=== PATIENT | female | born 1970 | race Caucasian/White ===

== ENCOUNTER 2016-12-31 10:46 | Emergency (ER) | payer BC ==
[2016-12-31] MEDS ORDERED: NS 1,000 ML IV ONE (12:04)
[2016-12-31 12:08] LABS: % IMMATURE GRANULYOCYTES 1.6 % (0.0-1.1); ABSOLUTE IMMATURE GRANULOCYTES 0.24 10^3/uL (0.00-0.10); ADD DIFF? NO; ADD MORPH? NO; ADD SCAN? YES; ATYPICAL LYMPHOCYTE FLAG 0 (0-99); FRAGMENT RBC FLAG 0 (0-99); HEMATOCRIT 34.2 % (38.0-47.0); HEMOGLOBIN 11.7 g/dL (12.6-16.3); LIPEMIA HEMOLYSIS FLAG 90 (0-99); MEAN CELL HEMOGLOBIN 31.7 pg (27.9-34.1); MEAN CELL HEMOGLOBIN CONCENTR. 34.2 g/dL (32.4-36.7); MEAN CELL VOLUME 92.7 fL (81.5-99.8); PLATELET CLUMPS FLAG 0 (0-99); PLATELET COUNT 284 10^3/uL (150-400); RED BLOOD CELL COUNT 3.69 10^6/uL (4.18-5.33); RED CELL DISTRIBUTION WIDTH 13.1 % (11.5-15.2)
[2016-12-31 12:14] LABS: LEFT SHIFT FLG 100 (0-99)
[2016-12-31 12:23] LABS: ANION GAP 9 mEq/L (8-16); CALCIUM 8.7 mg/dL (8.5-10.4); CARBON DIOXIDE 24 mEq/l (22-31); CHLORIDE 99 mEq/L (97-110); CREATININE 0.8 mg/dL (0.6-1.0); GLOMERULAR FILTRATION RATE > 60; GLUCOSE 97 mg/dL (70-100); POTASSIUM 4.6 mEq/L (3.5-5.2); SODIUM 132 mEq/L (134-144)
[2016-12-31 12:29] LABS: MONO TEST NEGATIVE (NEGATIVE)
[2016-12-31 12:31] LABS: BHCG-QUALITATIVE NEGATIVE
[2016-12-31 12:49] LABS: SCAN POSITIVE
[2016-12-31 12:52] LABS: PLATELET ESTIMATE ADEQUATE (ADEQ)
[2016-12-31] MEDS ORDERED: ACETAMINOPHEN 500 MG TAB PO ONE (12:59)
--- NOTE | 2016-12-31 13:03 | EDPHY ---
H & P Stated Complaint: GENERAL ACHES, LETHARGY, FEVER - Personal History LMP (Females 10-55): Hysterectomy Current Tetanus/Diphtheria Vaccine: No - Medical/Surgical History Other PMH: HERNIATED DISK, Time Seen by Provider: 12/31/16 11:30 HPI/ROS: Chief complaint: Fever History of present illness: 46-year-old female presents to the emergency department for fever. Patient reports he has had fever for the last 5 days. It has been intermittent in nature. She reports associated body aches, slight cough, mild headache and increasing fatigue. She did see her primary care doctor early on and was started on Tamiflu for presumptive influenza. She is currently taking this as prescribed but symptoms continued to worsen. She did see her primary care doctor today who center here for further evaluation and care. She denies precipitating factors. She denies alleviating factors. She denies sick contacts. Review of systems: A 10 point review of systems was obtained and other than described above was negative (Anthony Gómez) - Physical Exam Exam: General Appearance: Alert, nontoxic. Eyes: Pupils equal and round no pallor or injection. ENT, Mouth: Tympanic membranes, external auditory canals, external ears and surrounding soft tissue including over the mastoids are unremarkable. Nasopharynx is not injected. There is no rhinorrhea. Oropharynx is mildly injected. There is no edema. There is no exudate. There is no asymmetry. The uvula is midline. No elevation of the tongue. There is no hoarseness, no drooling, no trismus, no stridor. Respiratory: There are no retractions, lungs are clear to auscultation. Cardiovascular: Regular rate and rhythm. Gastrointestinal: Abdomen is soft and nontender, no masses, bowel sounds normal. Neurological: Alert and oriented x4. Strength and sensation intact and symmetrical. No meningismus. Skin: Warm and dry, no rashes. Musculoskeletal: Neck is supple nontender. Extremities are symmetrical, full range of motion. Psychiatric: Patient is oriented X 3, there is no agitation. (Anthony Gómez) Constitutional: Initial Vital Signs Temperature (C) 36.9 C 12/31/16 10:53 Heart Rate 92 12/31/16 10:53 Respiratory Rate 18 12/31/16 10:53 Blood Pressure 100/62 12/31/16 10:53 O2 Sat (%) 99 12/31/16 10:53 O2 Delivery Mode Room Air Allergies/Adverse Reactions: No Known Allergies Allergy (Unverified 12/31/16 10:50) Home Medications: Medication Instructions Recorded Citalopram 12/31/16 Flexeril 12/31/16 Gabapentin 12/31/16 Naproxen 12/31/16 Tamiflu 12/31/16 Xanax 12/31/16 Departure - Departure Disposition: Home, Routine, Self-Care Clinical Impression: Urinary tract infection Condition: Good Instructions: Viral Syndrome (ED) Additional Instructions: Follow-up with your primary care doctor for continued evaluation and care Finish Tamiflu as prescribed If symptoms worsen or new symptoms develop return to the emergency room for recheck Referrals: Kellie Munoz [Primary Care Provider] - As per Instructions
[2016-12-31 13:18] LABS: COLOR YELLOW; LEUKOCYTE ESTERASE,URINE 3+ (NEGATIVE); NITRITE,URINE NEGATIVE (NEGATIVE)
[2016-12-31 13:25] LABS: BACTERIA 4+ /hpf (NONE SEEN); WBC,URINE 50-182 /hpf (0-3)
[2016-12-31] MEDS ORDERED: KETOROLAC 30 MG/1 ML SDV IVP ONE (13:48)
[2016-12-31 14:51] VITALS: BP 112/75; PULSE 85; RESP 16; TEMP 98.1; O2SAT 98
== END 2016-12-31 15:04 | disposition home or self-care (01) ==
DX: N39.0 Urinary tract infection, site not specified (principal); B96.89 Other specified bacterial agents as the cause of diseases classified elsewhere
CPT/HCPCS: 96365; J0696; J1885

== ENCOUNTER 2017-01-01 23:14 | Inpatient (IN) | payer BC ==
[2017-01-01] MEDS ORDERED: NS 1,000 ML IV ONE (23:56)
--- NOTE | 2017-01-02 00:27 | EDPHY ---
H & P Time Seen by Provider: 01/01/17 23:32 HPI/ROS: CHIEF COMPLAINT: Abdominal pain HISTORY OF PRESENT ILLNESS: 46-year-old female presents to the emergency department by private vehicle complaining of abdominal pain and distension. Patient was seen in the emergency department yesterday and was diagnosed with urinary tract infection and likely viral syndrome. She was given IV ceftriaxone and started on oral Keflex. She has been taking this as prescribed since yesterday. She saw her primary care provider earlier in the week and was diagnosed with likely influenza and was started on Tamiflu. Patient now presents to the emergency department with abdominal pain and distension. No vomiting. Subjective fevers. No chest pain or difficulty breathing. No urinary symptoms. REVIEW OF SYSTEMS: Constitutional: No fever, no chills. Eyes: No double or blurry vision. ENT: No sore throat. Respiratory: No cough, no shortness of breath. Cardiac: No chest pain. Gastrointestinal: Abdominal pain as above. No vomiting or diarrhea Genitourinary: No dysuria. Musculoskeletal: No neck or back pain. Skin: No rashes. Neurological: No headache. Past Medical/Surgical History: Hysterectomy, bladder surgery, herniated disc cervical spine Social History: Smoking Status: Never smoked Physical Exam: General Appearance: Alert, no distress. Temperature 36.4 Eyes: Pupils equal and round. Extraocular motions are all intact. ENT: Mouth: Mucous membranes moist. Respiratory: No wheezing, rhonchi, or rales, lungs are clear to auscultation. Cardiovascular: Regular rate and rhythm. Gastrointestinal: Abdomen is soft. She has diffuse tenderness with palpation. Positive rebound tenderness. No guarding. Positive CVA tenderness bilaterally. Neurological: Alert and oriented x 3, cranial nerves II through XII grossly intact Skin: Warm and dry, no rashes. Musculoskeletal: Nontender to palpate along the cervical, thoracic or lumbar spine. Neck is supple. Extremities: Full range of motion and no peripheral edema. Psychiatric: Patient is oriented X 3, there is no agitation. Constitutional: Initial Vital Signs Temperature (C) 36.4 C 01/01/17 23:16 Heart Rate 83 01/01/17 23:16 Respiratory Rate 18 01/01/17 23:16 Blood Pressure 116/69 01/01/17 23:16 O2 Sat (%) 99 01/01/17 23:16 O2 Delivery Mode Room Air Allergies/Adverse Reactions: No Known Allergies Allergy (Unverified 12/31/16 10:50) Home Medications: Medication Instructions Recorded Cephalexin [Keflex] 500 mg PO Q6H #28 cap 12/31/16 ALPRAZolam [Xanax 0.5 MG (*)] 0.25 - 0.5 mg PO DAILY PRN 01/02/17 Ascorbic Acid [Vitamin C 500 mg 500 mg PO BID 01/02/17 (*)] Cholecalciferol Vit D3 [Vitamin D3 500 units PO BID 01/02/17 (*)] Cyclobenzaprine [Flexeril 10 MG 10 mg PO BID 01/02/17 (*)] Escitalopram Oxalate [Lexapro] 20 mg PO DAILY 01/02/17 Gabapentin [Neurontin 300 MG (*)] 300 mg PO TID 01/02/17 Herbals/Supplements -Info Only 1 ea PO DAILY 01/02/17 Naproxen [Naprosyn] 500 mg PO BID 01/02/17 [place]-3 Fatty Acids [Fish Oil 1000 1,000 mg PO DAILY 01/02/17 mg (*)] Oseltamivir Phosphate [Tamiflu 75 75 mg PO BID 01/02/17 mg (*)] Medical Decision Making - Diagnostics Imaging Results: Imaging Impressions Chest X-Ray 01/02/17 01:22 Impression: Small bilateral pleural effusions have developed. Imaging: Discussed imaging studies w/ roster clerk Radiologist ED Course/Re-evaluation: 46-year-old female presents to the emergency department with diffuse abdominal pain and distension. Laboratory studies were drawn the patient has a white blood cell count of over 17,000. She has normal kidney function. Her LFTs are elevated as they were yesterday although a bit improved today however. Her lipase is normal. On examination the patient has abdominal pain with positive peritoneal signs. Patient was also seen examined by Dr. Todd Guardado. CT imaging of the abdomen and pelvis with IV contrast was ordered which revealed diffuse edema to the bowel. No evidence of acute appendicitis. There is some free fluid in the pelvis although small. She also has bilateral small pleural effusions. I spoke with the on-call surgeon, Dr. Dylan Torres, who came to evaluate the patient and recommended this patient be admitted to Medicine and he would consult. Patient was given 1 g of ceftriaxone IV in the emergency department. Blood cultures are pending. Patient was also seen examined by Dr. Todd Guardado, secondary supervising physician. Differential Diagnosis: Including but not limited to acute appendicitis, urinary tract infection, pyelonephritis, cholecystitis, cholelithiasis, pancreatitis, hepatitis, bowel obstruction - Data Points Laboratory Results: Laboratory Results 01/02/17 00:15 01/02/17 00:15 Medications Given: Discontinued Medications Sodium Chloride (Ns) 1,000 mls @ 0 mls/hr IV ONCE ONE PRN Reason: Wide Open Stop: 01/01/17 23:57 Last Admin: 01/02/17 00:20 Dose: 1,000 mls Ceftriaxone Sodium/Dextrose (Rocephin 1 Gm (Premix)) 50 mls @ 100 mls/hr IV EDNOW ONE PRN Reason: Protocol Stop: 01/02/17 02:01 Last Admin: 01/02/17 01:59 Dose: 50 mls Departure - Departure Disposition: [facility] Inpatient Acute Clinical Impression: Acute pyelonephritis Abdominal pain Qualifiers: Abdominal location: generalized Qualified Code(s): R10.84 - Generalized abdominal pain Condition: Good
[2017-01-02 00:32] LABS: ADD DIFF? YES; ADD MORPH? NO; ATYPICAL LYMPHOCYTE FLAG 0 (0-99); FRAGMENT RBC FLAG 0 (0-99); HEMATOCRIT 31.8 % (38.0-47.0); HEMOGLOBIN 10.8 g/dL (12.6-16.3); LIPEMIA HEMOLYSIS FLAG 90 (0-99); MEAN CELL HEMOGLOBIN 31.6 pg (27.9-34.1); MEAN PLATELET VOLUME 10.3 fL (8.7-11.7); PLATELET CLUMPS FLAG 10 (0-99); PLATELET COUNT 352 10^3/uL (150-400); RED BLOOD CELL COUNT 3.42 10^6/uL (4.18-5.33); RED CELL DISTRIBUTION WIDTH 13.5 % (11.5-15.2)
[2017-01-02] MEDS ORDERED: IOPAMIDOL (ISOVUE-300) 100 ML BTL ONE (00:32)
[2017-01-02 00:38] LABS: ADD SCAN? NO; LEFT SHIFT FLG 100 (0-99)
[2017-01-02 01:00] LABS: ANION GAP 8 mEq/L (8-16); CALCIUM 8.5 mg/dL (8.5-10.4); CARBON DIOXIDE 24 mEq/l (22-31); CHLORIDE 105 mEq/L (97-110); CREATININE 0.8 mg/dL (0.6-1.0); GLOMERULAR FILTRATION RATE > 60; GLUCOSE 127 mg/dL (70-100); POTASSIUM 4.2 mEq/L (3.5-5.2); SODIUM 137 mEq/L (134-144)
[2017-01-02 01:10] LABS: PLATELET ESTIMATE ADEQUATE (ADEQ)
[2017-01-02 01:38] LABS: ALANINE AMINOTRANSFERASE 58 IU/L (9-52); ALBUMIN 2.9 g/dL (3.5-5.0); ALKALINE PHOSPHATASE 277 IU/L (38-126); ASPARTATE AMINOTRANSFERASE 39 IU/L (14-46); B-HYDROXYBUTYRATE 0.06 mmol/L (0.02-0.27); BILIRUBIN,TOTAL 1.3 mg/dL (0.1-1.4); BILIRUBIN-CONJUGATED 0.9 mg/dL (0.0-0.5); BILIRUBIN-UNCONJUGATED 0.4 mg/dL (0.0-1.1); TOTAL PROTEIN 6.1 g/dL (6.3-8.2)
[2017-01-02 01:49] LABS: TROPONIN I < 0.012 ng/mL (0-0.034)
[2017-01-02 01:57] LABS: COLOR YELLOW; NITRITE,URINE NEGATIVE (NEGATIVE)
[2017-01-02 02:03] LABS: LEUKOCYTE ESTERASE,URINE 2+ (NEGATIVE)
[2017-01-02 02:10] LABS: BACTERIA 3+ /hpf (NONE SEEN); WBC,URINE 15-25 /hpf (0-3)
[2017-01-02] MEDS ORDERED: ACETAMINOPHEN 325 MG TAB PO PRN (03:15)
[2017-01-02] MEDS ORDERED: ONDANSETRON 4 MG/2 ML VIAL IVP PRN (03:15)
[2017-01-02] MEDS ORDERED: ONDANSETRON DISINTEGRATING 4 MG TAB PO PRN (03:15)
[2017-01-02] MEDS: HYDROmorphONE/DILAUDID 1 MG/ML SYR IVP PRN ×2 (03:43→08:16)
--- NOTE | 2017-01-02 03:46 | PDGENHP ---
History and Physical - Chief Complaint abdominal pain - History of Present Illness Patient is a 46 year old female with no significant pmh who presents to the ED with continued abdominal pain. Patient states her symptoms started about 6 days ago with generalized fatigue, malaise and myalgias. By the following day, her symptoms were associated with intermittent low-grade fevers, so she went to her PMD office for evaluation. Her PMD felt her symptoms appeared consistent with the flu and patient was prescribed Tamiflu on 12/28. Her symptoms and fevers persisted despite Tamiflu initiation, with patient now experiencing more abdominal pain and bloating. She can then came to the ED on 12/31 for further evaluation, was determined to have a UTI and was given a prescription for Keflex. Patient's fevers. After initiating antibiotics, but she continued to have worsening abdominal pain and distention. She has again presented to the ED tonight, now with severe abdominal pain, moderately severe generalized fatigue with dizziness and also pleuritic/positional chest discomfort and palpitations. She denies any nausea, vomiting, diarrhea, headache, cough, shortness of breath. On arrival to the ED, patient was afebrile and hemodynamically stable. Labs revealed persistent leukocytosis, elevated alk phos, and significantly low serum albumin/protein. CT abd/pelvis was then obtained and revealed diffuse edema/anasarca; edema of bowel wall, b/l pleural effusions and trace pericardial effusion. There was also evidence of pyelonephritis, no stones or acute colitis. General surgery was consulted for her diffuse abdominal pain, indicated etiology of pain is likely nonsurgical. She was given IV ceftriaxone for continued treatment of her pyelonephritis/UTI and admitted for further management. History Information - Allergies/Home Medication List Allergies/Adverse Reactions: No Known Allergies Allergy (Unverified 12/31/16 10:50) Home Medications: Citalopram 12/31/16 [Last Taken Unknown] Flexeril 12/31/16 [Last Taken Unknown] Gabapentin 12/31/16 [Last Taken Unknown] Naproxen 12/31/16 [Last Taken Unknown] Tamiflu 12/31/16 [Last Taken Unknown] Xanax 12/31/16 [Last Taken Unknown] Oseltamivir Phosphate 01/01/17 [Last Taken Unknown] I have personally reviewed and updated: family history, medical history, social history, surgical history - Past Medical History Additional medical history: cervical radiculopathy with b/l neuropathy - Surgical History Additional surgical history: hysterectomy. b/l knee ortho surgeries - Family History Positive for: non-pertinent - Social History Smoking Status: Never smoked Alcohol Use: Rarely Drug Use: None Additional social history: Patient lives with her , works in grocery store Review of Systems ROS: 10pt was reviewed & negative except for what was stated in HPI & below Physical Exam Temp Pulse Resp BP Pulse Ox 36.4 C 88 16 105/66 96 01/02/17 03:15 01/02/17 03:15 01/02/17 03:15 01/02/17 03:15 01/02/17 03:15 Constitutional: no apparent distress, appears nourished, not in pain, other ( fatigued) Eyes: PERRL, anicteric sclera, EOMI Ears, Nose, Mouth, Throat: moist mucous membranes, hearing normal, ears appear normal, no oral mucosal ulcers Cardiovascular: regular rate and rhythym, no murmur, rub, or gallop, pulses symmetric bilaterally, No JVD, No edema Peripheral Pulses: 2+: dorsalis-pedis (R), dorsalis-pedis (L) Respiratory: no respiratory distress, no rales or rhonchi, clear to auscultation Gastrointestinal: normoactive bowel sounds, no palpable masses, tenderness (soft , but diffusely tender), distension (minimal distension), No guarding, No rebound Genitourinary: no bladder fullness, no bladder tenderness Skin: warm, normal color, no rashes or abrasions, no fluctuance, no induration, No mottled Musculoskeletal: full muscle strength, no muscle tenderness, normal joint ROM, no joint effusions Neurologic: AAOx3, sensation intact bilaterally, CN II-XII Intact, No weakness, No numbness, No facial droop Psychiatric: interacting appropriately, not anxious, not encephalopathic, thought process linear Lab Data & Imaging Review 01/02/17 05:13 01/02/17 05:13 WBC 17.19 10^3/uL (3.80-9.50) H 01/02/17 00:15 RBC 3.42 10^6/uL (4.18-5.33) L 01/02/17 00:15 Hgb 10.8 g/dL (12.6-16.3) L 01/02/17 00:15 POC Hgb 11.2 gm/dL (12.6-16.3) L 01/02/17 00:14 Hct 31.8 % (38.0-47.0) L 01/02/17 00:15 POC Hct 33 % (38-47) L 01/02/17 00:14 MCV 93.0 fL (81.5-99.8) 01/02/17 00:15 MCH 31.6 pg (27.9-34.1) 01/02/17 00:15 MCHC 34.0 g/dL (32.4-36.7) 01/02/17 00:15 RDW 13.5 % (11.5-15.2) 01/02/17 00:15 Plt Count 352 10^3/uL (150-400) D 01/02/17 00:15 MPV 10.3 fL (8.7-11.7) 01/02/17 00:15 Neut % (Auto) Not Reported 01/02/17 00:15 Lymph % (Auto) Not Reported 01/02/17 00:15 [place] % (Auto) Not Reported 01/02/17 00:15 Eos % (Auto) Not Reported 01/02/17 00:15 Baso % (Auto) Not Reported 01/02/17 00:15 Nucleat RBC Rel Count 0.0 % (0.0-0.2) 01/02/17 00:15 Absolute Neuts (auto) Not Reported 01/02/17 00:15 Absolute Lymphs (auto) Not Reported 01/02/17 00:15 Absolute Monos (auto) Not Reported 01/02/17 00:15 Absolute Eos (auto) Not Reported 01/02/17 00:15 Absolute Basos (auto) Not Reported 01/02/17 00:15 Absolute Nucleated RBC 0.00 10^3/uL (0-0.01) 01/02/17 00:15 Immature Gran % Not Reported 01/02/17 00:15 Seg Neutrophils % 61 % 01/02/17 00:15 Band Neutrophils % 28 % 01/02/17 00:15 Lymphocytes % 4 % 01/02/17 00:15 Monocytes % 6 % 01/02/17 00:15 Metamyelocytes % 1 % 01/02/17 00:15 Immature Gran # Not Reported 01/02/17 00:15 Absolute Seg Neuts 10.49 10^/uL (1.70-6.50) H 01/02/17 00:15 Absolute Band Neuts 4.81 10^3/uL (0.00-0.70) H 01/02/17 00:15 Absolute Lymphocytes 0.69 10^3/uL (1.00-3.00) L 01/02/17 00:15 Absolute Monocytes 1.03 10^3/uL (0.30-0.80) H 01/02/17 00:15 Absolute Metamyelocyte 0.17 10^3/mL (0.00-0.00) H 01/02/17 00:15 RBC/WBC/PLT Morphology NORMAL (NORMAL) 01/02/17 00:15 Platelet Estimate ADEQUATE (ADEQ) 01/02/17 00:15 VBG Lactic Acid 0.8 mmol/L (0.7-2.1) 01/02/17 00:55 POC Sodium 138 mEq/L (134-144) 01/02/17 00:14 Sodium 137 mEq/L (134-144) 01/02/17 00:15 POC Potassium 3.8 mEq/L (3.3-5.0) 01/02/17 00:14 Potassium 4.2 mEq/L (3.5-5.2) 01/02/17 00:15 POC Chloride 102 mEq/L (97-110) 01/02/17 00:14 Chloride 105 mEq/L (97-110) 01/02/17 00:15 Carbon Dioxide 24 mEq/l (22-31) 01/02/17 00:15 Anion Gap 8 mEq/L (8-16) 01/02/17 00:15 POC BUN 13 mg/dL (7-23) 01/02/17 00:14 BUN 14 mg/dL (7-23) 01/02/17 00:15 Creatinine 0.8 mg/dL (0.6-1.0) 01/02/17 00:15 POC Creatinine 0.9 mg/dL (0.6-1.0) 01/02/17 00:14 Estimated GFR > 60 01/02/17 00:15 Glucose 127 mg/dL (70-100) H 01/02/17 00:15 POC Glucose 135 mg/dL (70-100) H 01/02/17 00:14 Calcium 8.5 mg/dL (8.5-10.4) 01/02/17 00:15 Total Bilirubin 1.3 mg/dL (0.1-1.4) 01/02/17 00:15 Conjugated Bilirubin 0.9 mg/dL (0.0-0.5) H 01/02/17 00:15 Unconjugated Bilirubin 0.4 mg/dL (0.0-1.1) 01/02/17 00:15 AST 39 IU/L (14-46) 01/02/17 00:15 ALT 58 IU/L (9-52) H 01/02/17 00:15 Alkaline Phosphatase 277 IU/L (38-126) H 01/02/17 00:15 Troponin I < 0.012 ng/mL (0-0.034) 01/02/17 00:15 Total Protein 6.1 g/dL (6.3-8.2) L 01/02/17 00:15 Albumin 2.9 g/dL (3.5-5.0) L 01/02/17 00:15 Lipase 40.0 IU/L (23-300) 01/02/17 00:15 Beta-Hydroxybutyrate 0.06 mmol/L (0.02-0.27) 01/02/17 00:15 Urine Color YELLOW 01/02/17 00:15 Urine Appearance MODERATELY TURBID 01/02/17 00:15 Urine pH 6.0 (5.0-7.5) 01/02/17 00:15 Ur Specific [place] 1.005 (1.002-1.030) 01/02/17 00:15 Urine Protein NEGATIVE (NEGATIVE) 01/02/17 00:15 Urine Ketones NEGATIVE (NEGATIVE) 01/02/17 00:15 Urine Blood NEGATIVE (NEGATIVE) 01/02/17 00:15 Urine Nitrate NEGATIVE (NEGATIVE) 01/02/17 00:15 Urine Bilirubin NEGATIVE (NEGATIVE) 01/02/17 00:15 Urine Urobilinogen 2.0 EU (0.2-1.0) H 01/02/17 00:15 Ur Leukocyte Esterase 2+ (NEGATIVE) H 01/02/17 00:15 Urine RBC 1-3 /hpf (0-3) 01/02/17 00:15 Urine WBC 15-25 /hpf (0-3) H 01/02/17 00:15 Ur Epithelial Cells 4+ /lpf (NONE-1+) H 01/02/17 00:15 Urine Bacteria 3+ /hpf (NONE SEEN) H 01/02/17 00:15 Urine Glucose NEGATIVE (NEGATIVE) 01/02/17 00:15 Visualized and Interpreted Chest x-ray results: Yes Chest X-Ray results: no infiltrate Visualized and Interpreted imaging results: Yes Interpretation: CT abd/pelvis: anasarca, hepatomegaly, diffuse bowel wall edema Assessment & Plan Assessment: Patient is a 46-year-old female with no significant past medical history who presents to the ED with complaint of severe abdominal pain and 1 week of generalized malaise, myalgias and fevers. ED evaluation has revealed acute pyelonephritis as well as diffuse anasarca of her abdomen of unclear etiology. Plan: # acute pyelonephritis Patient has been on antibiotics since 12/31, with persistent leukocytosis on labs , but does not meet SIRS criteria on presentation today. CT does reveal possible R pyelonephritis and UA is still positive. Urine culture from 12/31 has grown gram negative rods, will continue IV ceftriaxone until speciation/ sensitivities result. # anasarca, hypoalbuminemia Etiology of this is not clear at this time. UA does not show significant proteinuria. May be related to the acute infection described above, however CT does show hepatomegaly and LFTs are deranged, indicating possible hepatic dysfunction. Abdominal US was ordered, read is pending. CT abd/pelvis also shows b/l pleural effusions and trace pericardial effusion. Will check TTE to assess size of effusion and cardiac function. Will check acute hepatitis panel, rapid HIV and continue to trend LFTs. # h/o cervical radiculopathy Chronic pain stable, will resume home meds once confirmed. # dispo: admit to observation status for management of pyelonephritis # gen: regular diet DVT ppx: low risk Full code
--- NOTE | 2017-01-02 04:25 | SOAPPROG ---
SOAP Progress Note Assessment/Plan: Assessment: 46 FEMALE WITH DIFFUSE ABD PAIN AND RECENT PYELO/ NOW AFEBRILE BUT WBC 17K CT NONDIAGNOSTIC/ LFTS UP/ US PENDING ABD SOFT WITH BS, DIFFUSELY TENDER BUT WO PERITONEAL SX UNCERTAIN ETIOLOGY OF ABD PAIN Plan:ADMIT FOR EVAL/ WILL FOLLOW 01/02/17 04:21 Objective: Vital Signs Temp Pulse Resp BP Pulse Ox 36.4 C 88 16 105/66 96 01/02/17 03:15 01/02/17 03:15 01/02/17 03:15 01/02/17 03:15 01/02/17 03:15 12/31/16 01/01/17 01/02/17 05:59 05:59 05:59 Intake Total 1000 Output Total 450 Balance 550 ICD10 Worksheet Patient Problems: Problems Problem Status Onset Abdominal pain Acute Acute pyelonephritis Acute
[2017-01-02 05:22] LABS: ADD DIFF? YES; ADD MORPH? NO; ADD SCAN? NO; ATYPICAL LYMPHOCYTE FLAG 50 (0-99); FRAGMENT RBC FLAG 0 (0-99); HEMATOCRIT 30.2 % (38.0-47.0); HEMOGLOBIN 10.1 g/dL (12.6-16.3); LEFT SHIFT FLG 80 (0-99); LIPEMIA HEMOLYSIS FLAG 80 (0-99); MEAN CELL HEMOGLOBIN 31.3 pg (27.9-34.1); MEAN CELL HEMOGLOBIN CONCENTR. 33.4 g/dL (32.4-36.7); MEAN CELL VOLUME 93.5 fL (81.5-99.8); PLATELET CLUMPS FLAG 10 (0-99); PLATELET COUNT 313 10^3/uL (150-400); RED BLOOD CELL COUNT 3.23 10^6/uL (4.18-5.33); RED CELL DISTRIBUTION WIDTH 13.4 % (11.5-15.2)
[2017-01-02 05:32] LABS: INR 1.17 (0.83-1.16); PROTIME(PATIENT) 14.9 SEC (12.0-15.0)
[2017-01-02 05:33] LABS: APTT 35.4 SEC (23.0-38.0)
[2017-01-02 05:38] LABS: ALANINE AMINOTRANSFERASE 52 IU/L (9-52); ALBUMIN 2.4 g/dL (3.5-5.0); ALKALINE PHOSPHATASE 232 IU/L (38-126); ANION GAP 6 mEq/L (8-16); ASPARTATE AMINOTRANSFERASE 24 IU/L (14-46); BILIRUBIN,TOTAL 1.1 mg/dL (0.1-1.4); CALCIUM 8.2 mg/dL (8.5-10.4); CARBON DIOXIDE 24 mEq/l (22-31); CHLORIDE 109 mEq/L (97-110); CREATININE 0.8 mg/dL (0.6-1.0); GLOMERULAR FILTRATION RATE > 60; GLUCOSE 80 mg/dL (70-100); MAGNESIUM 2.5 mg/dL (1.6-2.3); POTASSIUM 4.1 mEq/L (3.5-5.2); SODIUM 139 mEq/L (134-144); TOTAL PROTEIN 5.2 g/dL (6.3-8.2)
[2017-01-02 06:21] LABS: PLATELET ESTIMATE ADEQUATE (ADEQ); TOXIC GRANULATION PRESENT
[2017-01-02] MEDS: KETOROLAC 15 MG/1 ML SDV IVP SCH ×4 (07:02→23:35)
--- NOTE | 2017-01-02 08:40 | CPEKG ---
Heart Rate: 89 RR Interval: 674 P-R Interval: 136 QRSD Interval: 78 QT Interval: 360 QTC Interval: 439 P [place]: 42 QRS [place]: 41 T Wave [place]: 8 EKG Severity - BORDERLINE ECG - EKG Impression: SINUS RHYTHM EKG Impression: BORDERLINE T ABNORMALITIES, ANTERIOR LEADS Electronically Signed By: Hira Freeman 02-Jan-2017 08:45:38
[2017-01-02] MEDS: oxyCODONE IR 5 MG TAB PO PRN ×2 (09:15→19:21)
--- NOTE | 2017-01-02 10:18 | SOAPPROG ---
[facility] Progress Note Assessment/Plan: Assessment: 46 FEMALE WITH DIFFUSE ABD PAIN AND RECENT PYELO/ NOW AFEBRILE BUT WBC 17K CT NONDIAGNOSTIC/ LFTS UP/ US PENDING ABD SOFT WITH BS, DIFFUSELY TENDER BUT WO PERITONEAL SX UNCERTAIN ETIOLOGY OF ABD PAIN Plan:ADMIT FOR EVAL/ WILL FOLLOW 01/02/17 04:21 01/02/17 10:14 afebrile/ exam unchanged/ LFTs improved/ gb us edematous but no stones/ wbc 15k / will check HIDA altho sx probably related to pyelo Objective: Vital Signs Temp Pulse Resp BP Pulse Ox 36.8 C 95 16 107/64 95 01/02/17 09:25 01/02/17 09:25 01/02/17 09:25 01/02/17 09:25 01/02/17 09:25 Laboratory Results 01/02/17 05:13 01/02/17 05:13 01/01/17 01/02/17 01/03/17 05:59 05:59 05:59 Intake Total 1300 Output Total 450 800 Balance 850 -800 PT 14.9 SEC (12.0-15.0) 01/02/17 05:13 INR 1.17 (0.83-1.16) H 01/02/17 05:13 ICD10 Worksheet Patient Problems: Problems Problem Status Onset Abdominal pain Acute Acute pyelonephritis Acute
[2017-01-02] MEDS ORDERED: ALPRAZolam 0.25 MG TAB PO PRN (10:38)
[2017-01-02] MEDS: GABAPENTIN 300 MG CAP PO SCH ×3 (11:29→21:42)
--- NOTE | 2017-01-02 12:03 | HOSPPROG ---
Hospitalist Progress Note Assessment/Plan: Patient is a 46-year-old female with no significant past medical history who presents to the ED with complaint of severe abdominal pain and 1 week of generalized malaise, myalgias and fevers. ED evaluation has revealed acute pyelonephritis as well as diffuse anasarca of her abdomen of unclear etiology. # acute pyelonephritis (urine culture from 12/31 has grown gram negative rods) -continue IV ceftriaxone until speciation/sensitivities result. #abdominal pain most likely due to pyelonephritis I discussed the case with Dr. Torres who is recommending a HIDA scan # anasarca, hypoalbuminemia (Etiology of this is not clear at this time) -TTE pending -acute hepatitis panel and rapid HIV pending -trend LFTs. # h/o cervical radiculopathy Chronic pain stable, will resume home meds once confirmed. # dispo: admit to observation status for management of pyelonephritis # gen: regular diet DVT ppx: low risk Full code Subjective: feeling better, but continues to have severe abdominal pain and rt back pain. no fevers or chills Objective: Vital Signs Temp Pulse Resp BP Pulse Ox 36.8 C 95 16 107/64 95 01/02/17 09:25 01/02/17 09:25 01/02/17 09:25 01/02/17 09:25 01/02/17 09:25 Laboratory Results 01/02/17 05:13 01/02/17 05:13 01/01/17 01/02/17 01/03/17 05:59 05:59 05:59 Intake Total 1300 Output Total 450 800 Balance 850 -800 PT 14.9 SEC (12.0-15.0) 01/02/17 05:13 INR 1.17 (0.83-1.16) H 01/02/17 05:13 - Physical Exam Constitutional: no apparent distress, appears nourished, not in pain Cardiovascular: regular rate and rhythym, no murmur, rub, or gallop Respiratory: no respiratory distress, no rales or rhonchi, clear to auscultation Gastrointestinal: soft, non-tender abdomen, tenderness (ruq), distension, No guarding Neurologic: AAOx3, sensation intact bilaterally ICD10 Worksheet Patient Problems: Problems Problem Status Onset Abdominal pain Acute Acute pyelonephritis Acute
--- NOTE | 2017-01-02 16:28 | ECHO ---
[id number] + + [address] : : [place] [address] : : [phone] + + Adult Echocardiographic Report + ------+ :Name: Carri VAN Date: 01/02/2017 12:57 PM : : Hospital Admission Number: [id number] Locatio n: 155: :: 1970 Gender: Female Height: 64 in : :Age: 46 yrs Race: WH Weight: 142 lb : :Reason For Study: Eval for Pericardial effusion : : BSA: 1.7 meters 2 : :History: Pyelonephritis : + ------+ MMode/2D Measurements \T\ Calculations IVSd: 0.73 cm LVIDd: 4.2 cm FS: 31.8 % Ao root diam: 3.2 cm LVPWd: 0.96 cm LVIDs: 2.8 cm EDV(Teich): 77.7 ml ACS: 1.6 cm ESV(Teich): 30.9 ml EF(Teich): 60.3 % Normal Measurement Values: + + :LVIDd (3.5-5.7cm) IVSd (0.6-1.1cm) LVPWd (0.6-1.1cm) Aortic Root (2.0-3.7cm)Left Atrium (1.5-4.0cm): :LV Vol(d) (76-115ml) LV Vol(s) (29-48ml) Ejec Fraction (50-65%)PV Danny (0.6- 1.2m/s) TV Danny (0.4-1.0m/s) : :MV E Danny (0.8-1.0m/s)MV A Danny (0.3-1.0m/s)LVOT Danny (0.7-1.2m/s) Asc Ao Danny ( 0.9-1.8m/s) : + + Doppler Measurements \T\ Calculations MV E max danny: 70.1 cm/sec PA V2 max: 67.3 cm/sec TR max danny: 317.0 cm/sec MV A max danny: 65.2 cm/sec PA max P.8 mmHg TR max P.2 mmHg MV E/A: 1.1 RAP systole: 10.0 mmHg RVSP(TR): 50.2 mmHg Left Ventricle The left ventricle is normal in size. There is normal left ventricular wall thickness. The left ventricular ejection fraction is normal. Ejection Fraction = 60%. The left ventricular wall motion is normal. Right Ventricle The right ventricle is normal in size and function. Atria The left atrial size is normal. Right atrial size is normal. Mitral Valve The mitral valve is normal in structure and function. There is no evidence of mitral valve prolapse. There is no mitral valve stenosis. There is no mitral regurgitation noted. Tricuspid Valve There is mild to moderate tricuspid regurgitation. Right ventricular systolic pressure is 50mmHg. There is Doppler evidence for mild to moderate pulmonary hypertension. Aortic Valve The aortic valve is normal in structure and function. There is no aortic stenosis. There is no aortic insufficiency. Pulmonic Valve The pulmonic valve is normal in structure and function. There is no pulmonic valvular regurgitation. Great Vessels The aortic root is normal size. Pericardium/Pleural There is no pericardial effusion. Conclusion A complete two-dimensional transthoracic echocardiogram was performed (2D, M-mode, Doppler and color flow Doppler). Normal LV size and function with EF of 60% There is mild to moderate tricuspid regurgitation with RVSP of 50mm Hg (mild to moderate pulmonary hypertension) There is no pericardial effusion. Final Reading Physician: Rey Parisi signed on 01/02/2017 04:27 PM Ordering Physician: Robyn Yip Performed By: Ji Lopez, RDCS
[2017-01-02] MEDS: OSELTAMIVIR PHOSPHATE 75 MG CAP PO SCH (19:21)
[2017-01-02] MEDS: NAPROXEN SODIUM 220 MG TAB PO SCH (20:28)
[2017-01-02] MEDS: CYCLOBENZAPRINE 10 MG TAB PO SCH (20:28)
[2017-01-02] MEDS: CHOLECALCIFEROL VIT D3 1,000 UNITS TAB PO SCH (20:29)
[2017-01-02] MEDS: ASCORBIC ACID 500 MG TAB PO SCH (21:42)
[2017-01-03] MEDS: KETOROLAC 15 MG/1 ML SDV IVP SCH ×3 (04:50→18:32)
[2017-01-03] MEDS: oxyCODONE IR 5 MG TAB PO PRN ×2 (04:50→21:30)
[2017-01-03] MEDS ORDERED: Herbals/Supplements -Info Only PO SCH (09:00)
--- NOTE | 2017-01-03 14:03 | HOSPPROG ---
Hospitalist Progress Note Assessment/Plan: Patient is a 46-year-old female with no significant past medical history who presents to the ED with complaint of severe abdominal pain and 1 week of generalized malaise, myalgias and fevers. ED evaluation has revealed acute pyelonephritis as well as diffuse anasarca of her abdomen of unclear etiology. # acute pyelonephritis (urine culture from 12/31 has grown pansensitive e-coli) -continue IV ceftriaxone #abdominal pain with transaminitis most likely due to pyelonephritis/acute illness -HIDA scan was reviewed and negative for obstruction (EF was low) # anasarca, hypoalbuminemia (Etiology of this is not clear at this time but most likely related to acute infectious illness) -TTE with nml EF and mild to mod TR and mod pulm htn -UA negative for protein # h/o cervical radiculopathy Chronic pain stable, will resume home meds once confirmed. # dispo: change to inpatient status # gen: regular diet DVT ppx: low risk Full code Subjective: continues to have abd pain. improved fever or chills. still not feeling well Objective: Vital Signs Temp Pulse Resp BP Pulse Ox 36.8 C 87 16 132/79 H 97 01/03/17 08:50 01/03/17 08:50 01/03/17 08:50 01/03/17 08:50 01/03/17 08:50 Laboratory Results 01/02/17 05:13 01/02/17 05:13 01/02/17 01/03/17 01/04/17 05:59 05:59 05:59 Intake Total 1300 1500 Output Total 450 1800 Balance 850 -300 PT 14.9 SEC (12.0-15.0) 01/02/17 05:13 INR 1.17 (0.83-1.16) H 01/02/17 05:13 - Physical Exam Constitutional: no apparent distress, appears nourished, not in pain Cardiovascular: regular rate and rhythym, no murmur, rub, or gallop Respiratory: no respiratory distress, no rales or rhonchi, clear to auscultation Gastrointestinal: normoactive bowel sounds, tenderness (diffuse ), distension, No guarding, No rebound Genitourinary: no bladder fullness, no bladder tenderness, no renal bruits ICD10 Worksheet Patient Problems: Problems Problem Status Onset Abdominal pain Acute Acute pyelonephritis Acute
[2017-01-03] MEDS: GABAPENTIN 300 MG CAP PO SCH ×2 (15:30→18:21)
[2017-01-03] MEDS: OSELTAMIVIR PHOSPHATE 75 MG CAP PO SCH ×2 (18:18→18:33)
[2017-01-03] MEDS: CHOLECALCIFEROL VIT D3 1,000 UNITS TAB PO SCH ×2 (18:20→21:34)
[2017-01-03] MEDS: ASCORBIC ACID 500 MG TAB PO SCH ×2 (18:20→21:35)
[2017-01-03] MEDS: NAPROXEN SODIUM 220 MG TAB PO SCH ×2 (18:21→21:33)
[2017-01-03] MEDS: ESCITALOPRAM OXALATE 10 MG TAB PO SCH (18:21)
[2017-01-03] MEDS: CYCLOBENZAPRINE 10 MG TAB PO SCH ×2 (18:21→21:35)
[2017-01-03] MEDS: OMEGA-3 FATTY ACIDS 1,000 MG CAP PO SCH (18:22)
--- NOTE | 2017-01-03 22:41 | SOAPPROG ---
SOAP Progress Note Assessment/Plan: Assessment: 46 FEMALE WITH DIFFUSE ABD PAIN AND RECENT PYELO/ NOW AFEBRILE BUT WBC 17K CT NONDIAGNOSTIC/ LFTS UP/ US PENDING ABD SOFT WITH BS, DIFFUSELY TENDER BUT WO PERITONEAL SX UNCERTAIN ETIOLOGY OF ABD PAIN Plan:ADMIT FOR EVAL/ WILL FOLLOW 01/02/17 04:21 01/02/17 10:14 afebrile/ exam unchanged/ LFTs improved/ gb us edematous but no stones/ wbc 15k / will check HIDA altho sx probably related to pyelo 01/03/17 22:39 SEEN THIS AM/ NOT MUCH CHANGE TODAY/ AFEBRILE/ STILL CO RUQ PAIN/ HIDA MILDLY DECREASED EF BUT HAS PAIN MEDS/ MAY NEED COLONOSCOPY Objective: Vital Signs Temp Pulse Resp BP Pulse Ox 36.9 C 88 16 135/85 H 98 01/03/17 19:47 01/03/17 19:47 01/03/17 19:47 01/03/17 19:47 01/03/17 19:47 01/02/17 01/03/17 01/04/17 05:59 05:59 05:59 Intake Total 2250 Output Total 1750 Balance 500 PT 14.9 SEC (12.0-15.0) 01/02/17 05:13 INR 1.17 (0.83-1.16) H 01/02/17 05:13 ICD10 Worksheet Patient Problems: Problems Problem Status Onset Abdominal pain Acute Acute pyelonephritis Acute
[2017-01-04] MEDS: KETOROLAC 15 MG/1 ML SDV IVP SCH ×4 (00:05→18:26)
[2017-01-04] MEDS: GABAPENTIN 300 MG CAP PO SCH ×4 (00:06→21:36)
[2017-01-04] MEDS: oxyCODONE IR 5 MG TAB PO PRN ×4 (02:49→21:36)
[2017-01-04 05:08] LABS: ADD DIFF? YES; ADD MORPH? NO; ATYPICAL LYMPHOCYTE FLAG 0 (0-99); FRAGMENT RBC FLAG 0 (0-99); HEMATOCRIT 30.2 % (38.0-47.0); HEMOGLOBIN 10.3 g/dL (12.6-16.3); LIPEMIA HEMOLYSIS FLAG 90 (0-99); MEAN CELL HEMOGLOBIN 31.1 pg (27.9-34.1); MEAN CELL HEMOGLOBIN CONCENTR. 34.1 g/dL (32.4-36.7); MEAN CELL VOLUME 91.2 fL (81.5-99.8); MEAN PLATELET VOLUME 9.5 fL (8.7-11.7); PLATELET CLUMPS FLAG 0 (0-99); PLATELET COUNT 381 10^3/uL (150-400); RED BLOOD CELL COUNT 3.31 10^6/uL (4.18-5.33); RED CELL DISTRIBUTION WIDTH 13.3 % (11.5-15.2)
[2017-01-04 05:09] LABS: ADD SCAN? NO; LEFT SHIFT FLG 120 (0-99)
[2017-01-04 05:13] LABS: ALANINE AMINOTRANSFERASE 50 IU/L (9-52); ALBUMIN 2.5 g/dL (3.5-5.0); ALKALINE PHOSPHATASE 286 IU/L (38-126); ANION GAP 6 mEq/L (8-16); ASPARTATE AMINOTRANSFERASE 27 IU/L (14-46); BILIRUBIN,TOTAL 0.5 mg/dL (0.1-1.4); CALCIUM 8.4 mg/dL (8.5-10.4); CARBON DIOXIDE 25 mEq/l (22-31); CHLORIDE 105 mEq/L (97-110); CREATININE 0.8 mg/dL (0.6-1.0); GLOMERULAR FILTRATION RATE > 60; GLUCOSE 78 mg/dL (70-100); POTASSIUM 4.5 mEq/L (3.5-5.2); SODIUM 136 mEq/L (134-144); TOTAL PROTEIN 5.3 g/dL (6.3-8.2)
[2017-01-04 05:36] LABS: PLATELET ESTIMATE ADEQUATE (ADEQ)
[2017-01-04] MEDS: NAPROXEN SODIUM 220 MG TAB PO SCH ×2 (08:58→21:36)
[2017-01-04] MEDS: ESCITALOPRAM OXALATE 10 MG TAB PO SCH (08:59)
[2017-01-04] MEDS: OMEGA-3 FATTY ACIDS 1,000 MG CAP PO SCH (09:00)
[2017-01-04] MEDS: OSELTAMIVIR PHOSPHATE 75 MG CAP PO SCH (09:00)
[2017-01-04] MEDS: ASCORBIC ACID 500 MG TAB PO SCH ×2 (09:00→21:31)
[2017-01-04] MEDS: CHOLECALCIFEROL VIT D3 1,000 UNITS TAB PO SCH ×2 (09:00→21:35)
[2017-01-04] MEDS: CYCLOBENZAPRINE 10 MG TAB PO SCH ×2 (09:00→21:37)
--- NOTE | 2017-01-04 11:38 | HOSPPROG ---
Hospitalist Progress Note Assessment/Plan: Patient new to my care today. I have reviewed labs, imaging, prior notes. #Acute abdominal pain -unclear etiology. Query if all related to pyelonephritis. GB edematous on U/S, subsequent HIDA with low-normal EF #Moderate pulm HTN/TR: unclear etiology -endorsed taking her son's "weight loss" pills for a few weeks -check PETRONA, RF. Consider V/Q, pulm function and sleep study outpatient #Leukocytosis: resolved #Anasarca/hypoalbuminemia: normal LV EF. UA negative for protein. Mod pulm HTN/ TR on echo #E coli pyelonephritis: cont abx for 10 days (Day 5) #Cervical radiculopathy: stable #Diet: as tolerated #DVT ppx: Lovenox #Disp: cont inpt tx with abd pain with PRN opioids, IV abx Subjective: abd pain persists despite pain meds. No bowel movement in 3 days Objective: Vital Signs Temp Pulse Resp BP Pulse Ox 36.9 C 94 18 104/68 96 01/04/17 08:25 01/04/17 08:25 01/04/17 08:25 01/04/17 08:25 01/04/17 08:25 Laboratory Results 01/04/17 04:40 01/04/17 04:40 01/03/17 01/04/17 01/05/17 05:59 05:59 05:59 Intake Total 2250 Output Total 3050 350 Balance -800 -350 PT 14.9 SEC (12.0-15.0) 01/02/17 05:13 INR 1.17 (0.83-1.16) H 01/02/17 05:13 - Physical Exam Constitutional: no apparent distress Eyes: PERRL Ears, Nose, Mouth, Throat: moist mucous membranes, hearing normal Cardiovascular: regular rate and rhythym, other (promiment P2) Respiratory: no respiratory distress, no rales or rhonchi Gastrointestinal: normoactive bowel sounds, soft, non-tender abdomen, tenderness (mild RUQ TTP, no rebound, guarding) Genitourinary: no bladder fullness, no bladder tenderness Skin: warm Musculoskeletal: full muscle strength, other (left wrist in brace) Neurologic: AAOx3 ICD10 Worksheet Patient Problems: Problems Problem Status Onset Abdominal pain Acute Acute pyelonephritis Acute
[2017-01-04] MEDS ORDERED: MAGNESIUM HYDROXIDE 30 ML UDCUP PO PRN (11:39)
[2017-01-04] MEDS ORDERED: BISACODYL 10 MG SUPP PR PRN (11:39)
[2017-01-04] MEDS ORDERED: POLYETHYLENE GLYCOL 3350 17 GM PKT PO PRN (11:39)
[2017-01-04] MEDS ORDERED: LACTULOSE 20 GM/30 ML UDCUP PO PRN (11:39)
--- NOTE | 2017-01-04 21:35 | SOAPPROG ---
SOAP Progress Note Assessment/Plan: Assessment/Plan: 46 Y F abdominal pain, etiology unclear, query pyelonephritis. Alk Phos high, otherwise LFTs normalized. Hep panel negative. US no stones. Hida EF mildly low. Continue abx and observation. Doubt need for surgery at this point. Consider colonoscopy if not improved. Will continue to follow. (Seen and examined earlier today). S: Tolerating regular diet. No BM x 3d--took metamucil today. No N/V. Still having primarily R sided abd pain. O: alert, nad abd soft, NT on exam (on pain meds). no guarding. 01/04/17 21:31 Objective: Vital Signs Temp Pulse Resp BP Pulse Ox 36.5 C 76 18 126/84 H 96 01/04/17 19:42 01/04/17 19:42 01/04/17 19:42 01/04/17 19:42 01/04/17 19:42 Laboratory Results 01/04/17 04:40 01/04/17 04:40 01/03/17 01/04/17 01/05/17 05:59 05:59 05:59 Intake Total 2250 2150 Output Total 3050 1050 Balance -800 1100 PT 14.9 SEC (12.0-15.0) 01/02/17 05:13 INR 1.17 (0.83-1.16) H 01/02/17 05:13 ICD10 Worksheet Patient Problems: Problems Problem Status Onset Abdominal pain Acute Acute pyelonephritis Acute
[2017-01-04] MEDS: SENNOSIDES/DOCUSATE SODIUM TAB PO SCH (21:39)
[2017-01-05] MEDS: KETOROLAC 15 MG/1 ML SDV IVP SCH ×2 (01:36→07:24)
[2017-01-05] MEDS: oxyCODONE IR 5 MG TAB PO PRN ×2 (03:41→09:07)
[2017-01-05 04:29] LABS: ABSOLUTE NRBC COUNT 0.03 10^3/uL (0-0.01); ADD DIFF? YES; ADD MORPH? NO; ATYPICAL LYMPHOCYTE FLAG 70 (0-99); FRAGMENT RBC FLAG 0 (0-99); HEMATOCRIT 29.8 % (38.0-47.0); HEMOGLOBIN 10.2 g/dL (12.6-16.3); LIPEMIA HEMOLYSIS FLAG 90 (0-99); MEAN CELL HEMOGLOBIN 31.3 pg (27.9-34.1); MEAN CELL HEMOGLOBIN CONCENTR. 34.2 g/dL (32.4-36.7); MEAN CELL VOLUME 91.4 fL (81.5-99.8); NRBC-AUTO% 0.3 % (0.0-0.2); RED BLOOD CELL COUNT 3.26 10^6/uL (4.18-5.33); RED CELL DISTRIBUTION WIDTH 13.2 % (11.5-15.2)
[2017-01-05 04:36] LABS: LEFT SHIFT FLG 140 (0-99); PLATELET CLUMPS FLAG 300 (0-99)
[2017-01-05 04:56] LABS: ALANINE AMINOTRANSFERASE 43 IU/L (9-52); ALBUMIN 2.7 g/dL (3.5-5.0); ALKALINE PHOSPHATASE 265 IU/L (38-126); ANION GAP 11 mEq/L (8-16); ASPARTATE AMINOTRANSFERASE 29 IU/L (14-46); BILIRUBIN,TOTAL 0.7 mg/dL (0.1-1.4); C-REACTIVE PROTEIN 72.6 mg/L (<10.0); CALCIUM 8.7 mg/dL (8.5-10.4); CARBON DIOXIDE 23 mEq/l (22-31); CHLORIDE 104 mEq/L (97-110); CHOLESTEROL 112 mg/dL (140-200); CHOLESTEROL/HDL RATIO 6.22 RATIO (1.00-4.44); CREATININE 0.7 mg/dL (0.6-1.0); GLOMERULAR FILTRATION RATE > 60; GLUCOSE 89 mg/dL (70-100); HIGH DENSITY LIPOPROTEIN 18 mg/dL (40-95); LDL/HDL RATIO 3.78 RATIO (1.00-3.22); LOW DENSITY LIPOPROTEIN 68 mg/dL (70-100); NON-HIGH DENSITY LIPOPROTEIN 94 mg/dL (90-129); SODIUM 138 mEq/L (134-144); TOTAL PROTEIN 5.5 g/dL (6.3-8.2); TRIGLYCERIDE 134 mg/dL (35-135); VERY LOW DENSITY LIPOPROTEINS 26 mg/dL (8-25)
[2017-01-05 05:10] LABS: ADD SCAN? NO
[2017-01-05 05:16] LABS: PLATELET ESTIMATE CLUMPED (ADEQ)
[2017-01-05 05:29] LABS: SEDIMENTATION RATE 79 MM/HR (0-20)
[2017-01-05 08:12] VITALS: BP 116/70; PULSE 77; RESP 18; TEMP 98; O2SAT 96
[2017-01-05] MEDS: ASCORBIC ACID 500 MG TAB PO SCH (08:39)
[2017-01-05] MEDS: GABAPENTIN 300 MG CAP PO SCH (08:40)
[2017-01-05] MEDS: NAPROXEN SODIUM 220 MG TAB PO SCH (08:40)
[2017-01-05] MEDS: CHOLECALCIFEROL VIT D3 1,000 UNITS TAB PO SCH (08:40)
[2017-01-05] MEDS: ESCITALOPRAM OXALATE 10 MG TAB PO SCH (08:40)
[2017-01-05] MEDS: OMEGA-3 FATTY ACIDS 1,000 MG CAP PO SCH (08:41)
[2017-01-05] MEDS: CYCLOBENZAPRINE 10 MG TAB PO SCH (08:41)
[2017-01-05] MEDS: SENNOSIDES/DOCUSATE SODIUM TAB PO SCH (08:42)
[2017-01-05 08:59] LABS: GAMMA-GLUTAMYLTRANSFERASE 173 IU/L (12-43)
--- NOTE | 2017-01-05 09:28 | HOSPPROG ---
Hospitalist Progress Note Assessment/Plan: #Acute abdominal pain: improved -unclear etiology. Query if all related to pyelonephritis. GB edematous on U/S, subsequent HIDA with low-normal EF -GGT high. Negative hep serologies. GGT high. anti-smooth pending -I discussed case with Dr. Quiñonez. Given so acute, he recommend her healing from acute illness. Repeat labs with PCP and can consider GI referral at that time #Moderate pulm HTN/TR: unclear etiology -endorsed taking her son's "weight loss" pills for a few weeks -check PETRONA, RF. Consider V/Q, pulm function and sleep study outpatient -RF elevated at 39. Has h/o cervical stenosis? Awaiting other studies: complements. -repeat TTE in 1-2 months #Query autoimmune dz: she has a constellation of finding: small ascites, pericardial effusion, high RF. Screening labs pending: PETRONA, C3/C4. AMA. #Leukocytosis: resolved #Anasarca/hypoalbuminemia: normal LV EF. UA negative for protein. Mod pulm HTN/ TR on echo #E coli pyelonephritis: cont abx for a total of 10 days #Cervical radiculopathy: stable #Diet: as tolerated #DVT ppx: Lovenox #Disp: DC today Subjective: pain improved. Feeling better today Objective: Vital Signs Temp Pulse Resp BP Pulse Ox 36.6 C 77 18 116/70 96 01/05/17 08:00 01/05/17 08:00 01/05/17 08:00 01/05/17 08:00 01/05/17 08:00 Microbiology 01/04/17 20:38 Gastrointestinal Tract Panel (PCR) - Final Stool No Organism Detected Laboratory Results 01/05/17 04:12 01/05/17 04:12 01/04/17 01/05/17 01/06/17 05:59 05:59 05:59 Intake Total 2250 2150 Output Total 3050 2650 Balance -800 -500 PT 14.9 SEC (12.0-15.0) 01/02/17 05:13 INR 1.17 (0.83-1.16) H 01/02/17 05:13 - Physical Exam Constitutional: other (appears brighter) Ears, Nose, Mouth, Throat: moist mucous membranes Cardiovascular: regular rate and rhythym (prominent P2), no murmur, rub, or gallop Respiratory: no respiratory distress, no rales or rhonchi Gastrointestinal: normoactive bowel sounds, tenderness (mild RUQ TTP) Genitourinary: no bladder fullness Skin: warm Musculoskeletal: full muscle strength, no muscle tenderness, no joint effusions Neurologic: AAOx3 Psychiatric: interacting appropriately Lymph, Heme, Immunologic: no cervical LAD ICD10 Worksheet Patient Problems: Problems Problem Status Onset Abdominal pain Acute Acute pyelonephritis Acute
--- NOTE | 2017-01-05 10:25 | GDS ---
[f rep st] DISCHARGE SUMMARY DISCHARGE DIAGNOSES: 1. Acute abdominal pain. 2. Moderate pulmonary hypertension/tricuspid regurgitation. 3. Leukocytosis. 4. Escherichia coli pyelonephritis. 5. Anasarca/hypoalbuminemia. 6. Query autoimmune disease. 7. Cervical radiculopathy. CONSULTATIONS: Surgery. HISTORY OF PRESENT ILLNESS: The patient is a 46-year-old female with a history of cervical stenosis, carpal tunnel syndrome, presenting with 6 days of generalized fatigue, malaise and myalgias. She had intermittent low-grade fevers so went to her primary doctor for evaluation. They thought she had the flu and was prescribed Tamiflu on 12/28. Symptoms and fevers persisted despite this treatment and the patient was experiencing more abdominal pain and bloating. She came to the ED on 12/31 for further evaluation, was found to have a UTI and was prescribed Keflex. Again patient's symptoms persisted, specifically abdominal pain and distention and re-presented to the emergency room. HOSPITAL COURSE BY PROBLEM: 1. Acute abdominal pain/distention: CT was negative for abscess or acute infection but did show anasarca and right pyelonephritis. There is a prominent soft tissue in the perineum. The patient's pain was mainly in her lower abdomen and right upper quadrant. Surgery was consulted and further imaging with abdominal ultrasound was negative except for edematous gallbladder and enlarged liver. HIDA showed low to normal EF of 35%. Queried if this is all due to acute illness with pyelonephritis. Patient is feeling well today, eating without issue. I did discuss the case with Dr. Quiñonez with Gastroenterology given the fact that she has an elevated alkaline phosphatase, GGT. He did not recommend any further imaging at this time. There is no surgery warranted. Will allow patient to heal from acute illness and repeat LFTs. Other studies pending are an PETRONA and anti-smooth muscle antibody, to be followed by PCP. 2. Moderate pulmonary hypertension/tricuspid regurgitation: unclear etiology. Patient denies methamphetamine abuse. She did take some of her son's weight loss medication for a couple weeks but could not recall the name. Did routine screening for rheumatologic etiologies. RF is elevated at 39 but PETRONA is pending. Recommend repeat echo in 1-2 months. 3. Anasarca/hypoalbuminemia: Anasarca on CT with an albumin of 2.5. Normal EF on echocardiogram, negative urine protein. I have ordered PETRONA, anti-smooth muscle antibody, antimitochondrial antibody. These are pending and should be FU with PCP. 4. Query autoimmune disease: she has a constellation of findings including small ascites, pericardial effusion, pleural effusions. May be due to acute illness. RF is elevated, but not c/w diagnosis for RA. PETRONA, complements are pending. 5. Leukocytosis: Secondary to acute UTI, resolved with IV antibiotics. 6. Escherichia coli pyelonephritis: Treated with IV ceftriaxone and changed to Levaquin for a total of 10 days antibiotics. 7. Fevers, myalgias: Patient was initially treated for influenza however PCR was negative so Tamiflu was discontinued. DISPOSITION: Patient is stable for discharge. FOLLOWUP: 1. Primary care physician in 1-2 weeks. Repeat LFTs in 1-2 weeks. If abnormal , consider GI consultation. 2. Follow up repeat echocardiogram 2-3 months to re-evaluate pulmonary hypertension and tricuspid regurgitation. LABS PENDING: PETRONA, complement levels, anti-smooth muscle antibody, antimitochondrial antibody. TIME SPENT ON DISCHARGE: Greater than 60 minutes counseling patient on followup plan, labs pending and consulting with Dr. Quiñonez with GI. /[id number]/MODL MTDD
[2017-01-06 18:16] LABS: C3 COMPLEMENT COMPONENT 159 mg/dL (75 - 175); C4 COMPLEMENT COMPONENT 19 mg/dL (14 - 40)
[2017-01-07 11:21] LABS: SMOOTH MUSCLE ANTIBODIES SERUM Negative (Negative)
== END 2017-01-05 12:00 | disposition home or self-care (01) | DRG 392 ==
LOC: F1N 01-02 02:34 → OBSVTOIN 01-03 14:08
PROVIDERS: ADMIT Internal Medicine; ATTEND Internal Medicine
DX: R10.30 Lower abdominal pain, unspecified (principal); R10.11 Right upper quadrant pain; N10 Acute pyelonephritis; B96.20 Unspecified Escherichia coli [E. coli] as the cause of diseases classified elsewhere; I27.2 Other secondary pulmonary hypertension; I07.1 Rheumatic tricuspid insufficiency; R60.1 Generalized edema; E88.09 Other disorders of plasma-protein metabolism, not elsewhere classified; M54.12 Radiculopathy, cervical region; M35.9 Systemic involvement of connective tissue, unspecified
CPT/HCPCS: 82947-QW; 86255-90; 96365; 97116-GP; 97161-GP; 97530-GP; A9537; G0378; G0472; J0696; J1170; J1885; Q9967

== ENCOUNTER → 2017-08-03 | Outpatient (CLI) | payer BC ==
[~2017-08-03] MED LIST: GADOBUTROL 10 ML VIAL IVP ONE
== END ==
LOC: FIMAGING 08:12
PROVIDERS: ATTEND Orthopaedic Surgery Sports Medicine
DX: S92.501D Displaced unspecified fracture of right lesser toe(s), subsequent encounter for fracture with routine healing (principal); M85.471 Solitary bone cyst, right ankle and foot
CPT/HCPCS: A9585

== ENCOUNTER → 2018-07-14 | Outpatient (CLI) | payer BC | LOC: FIMAGING 08:41 | PROVIDERS: ATTEND Orthopaedic Surgery | DX: Z01.818 Encounter for other preprocedural examination (principal); M17.12 Unilateral primary osteoarthritis, left knee ==

== ENCOUNTER 2018-07-28 06:09 | Observation (INO) | payer BC ==
[~2018-07-28 06:09] MED LIST changes: -GADOBUTROL 10 ML VIAL IVP ONE; +ROPIVACAINE 0.2% 80 MG, EPINEPHrine 0.2 MG, KETOROLAC TROMETHAMINE 30 MG in SYRINGE 0 ML IU ONE; +TRANEXAMIC ACID 3,000 MG in NS (SYRINGE) 50 ML IRR ONE
[2018-07-28] MEDS ORDERED: ACETAMINOPHEN 325 MG TAB PO ONE (06:47)
[2018-07-28] MEDS ORDERED: FAMOTIDINE 20 MG TAB PO ONE (06:47)
[2018-07-28] MEDS ORDERED: DEXAMETHASONE 4 MG/ML VIAL IVP ONE (06:47)
[2018-07-28] MEDS ORDERED: ceFAZolin 2 GM/DEXTROSE 100 ML IV ONE (06:47)
[2018-07-28] MEDS ORDERED: LR 1,000 ML IV ONE (06:48)
[2018-07-28] MEDS ORDERED: TRANEXAMIC ACID 3,000 MG/50 ML BAG IRR ONE (06:51)
--- NOTE | 2018-07-28 07:11 | PDHPUP ---
History & Physical Update H&P update statement: This history and physical update is based on an assessment of the patient which was completed after admission or registration (within 24 hours), but prior to the surgery/procedure. H&P update: H&P reviewed & patient examined, no change in patient's condition since H&P completed
--- NOTE | 2018-07-28 07:13 | PDANEPAE ---
ANE History of Present Illness L knee OA, here for TKA ANE Past Medical History - Cardiovascular History Hx Hypertension: No Hx Arrhythmias: No Hx Chest Pain: No Hx Coronary Artery / Peripheral Vascular Disease: No Hx CHF / Valvular Disease: No Hx Palpitations: No - Pulmonary History Hx COPD: No Hx Asthma/Reactive Airway Disease: No Hx Recent Upper Respiratory Infection: No Hx Oxygen in Use at Home: No Hx Sleep Apnea: No Sleep Apnea Screening Result - Last Documented: Negative - Neurologic History Hx Cerebrovascular Accident: No Hx Seizures: No Hx Dementia: No Neurologic History Comment: radiculopathy, left shoulder, upper back since cervical fusion. hx migrane - Endocrine History Hx Diabetes: No - Renal History Hx Renal Disorders: No Renal History Comment: KIDNEY INF 2016 - Liver History Hx Hepatic Disorders: No - Neurological & Psychiatric Hx Hx Neurological and Psychiatric Disorders: Yes Neurological / Psychiatric History Comment: VENLAFAXINE - Cancer History Hx Cancer: No - Congenital Disorder History Hx Congenital Disorders: No - GI History Hx Gastrointestinal Disorders: No - Other Health History Other Health History: NEG - Chronic Pain History Chronic Pain: Yes (NECK & R KNEE) - Surgical History Prior Surgeries: HANDY KNEE SURGERY. HYSTERECTOMY 2009 DERMOID CYST. HANDY KNEE SCOPES 2006. CERV FUSION 08/2017. BONE GRAFT R FOOT. LIPOMA CYST L SHOULDER. 01/2008 CARPAL TUNNEL R. E/2007 CARPAL TUNNEL L ANE Review of Systems Review of Systems: - Exercise capacity METS (RN): 4 METS ANE Patient History - Allergies Allergies/Adverse Reactions: No Known Allergies Allergy (Verified 06/27/18 11:25) - Home Medications Home Medications: ALPRAZolam [Xanax 0.5 MG (*)] 0.25 - 0.5 mg PO HS PRN 06/27/18 [Last Taken 3 Weeks Ago ~07/07/18] Acetamn/Diphenhydramine 500/25 [Tylenol PM (*)] 1 each PO HS 06/27/18 [Last Taken 07/26/18] Cyclobenzaprine [Flexeril 10 MG (*)] 10 mg PO BID 06/27/18 [Last Taken 07/27/18] Gabapentin [Neurontin 300 MG (*)] 300 mg PO TID 06/27/18 [Last Taken 07/27/18] Venlafaxine Xr [Effexor Xr] 150 mg PO DAILY 06/27/18 [Last Taken 07/27/18] Zolpidem Tartrate [Ambien 5MG (*)] 5 mg PO HS PRN 06/27/18 [Last Taken 3 Months Ago ~04/28/18] oxyCODONE IR [Oxycodone Ir (*)] 5 mg PO DAILY PRN 06/27/18 [Last Taken 3 Weeks Ago ~07/07/18] - NPO status NPO Status: no food or drink >8 hours NPO Since - Liquids (Date): 07/27/18 NPO Since - Liquids (Time): 23:30 NPO Since - Solids (Date): 07/27/18 NPO Since - Solids (Time): 23:30 - Anes Hx Anes Hx: no prior problems - Smoking Hx Smoking Status: Former smoker - Alcohol Use Alcohol Use: Occasionally - Family Anes Hx Family Anes Hx: none Family Hx Anesthesia Complications: NEG ANE Labs/Vital Signs - Vital Signs Blood Pressure: 108/70 Heart Rate: 73 Respiratory Rate: 14 O2 Sat (%): 95 Height: 162.56 cm Weight: 74.843 kg ANE Physical Exam - Airway Neck exam: decreased ROM, spinal fusion Mallampati Score: Class 2 Mouth exam: normal dental/mouth exam - Pulmonary Pulmonary: no respiratory distress, clear to auscultation - Cardiovascular Cardiovascular: regular rate and rhythym, no murmur, rub, or gallop - ASA Status ASA Status: II ANE Anesthesia Plan Anesthesia Plan: GA with mask, spinal Regional Anesthesia: single shot NB, adductor canal FNB Total IV Anesthesia: Yes
[2018-07-28] MEDS ORDERED: MIDAZOLAM 2 MG/2 ML VIAL IVP ONE (07:14)
[2018-07-28] MEDS ORDERED: PROPOFOL/EMULSION 500 MG/50 ML BOTTLE IV ONE ×2 (07:21→08:55)
[2018-07-28] MEDS ORDERED: NALOXONE HCL 0.4 MG/ML INJ IVP PRN (08:50)
[2018-07-28] MEDS ORDERED: DIAZEPAM 5 MG/ML 1 ML SYR IVP PRN (08:50)
[2018-07-28] MEDS ORDERED: ACETAMINOPHEN 500 MG TAB PO PRN (08:50)
[2018-07-28] MEDS ORDERED: ONDANSETRON 4 MG/2 ML VIAL IVP PRN ×2 (08:50→09:47)
[2018-07-28] MEDS ORDERED: HYDROCODONE/APAP 5/325 TAB PO PRN (08:50)
[2018-07-28] MEDS ORDERED: HYDROmorphONE/DILAUDID 2 MG/ML INJ IVP PRN (08:50)
[2018-07-28] MEDS ORDERED: oxyCODONE IR 5 MG TAB PO PRN (08:50)
[2018-07-28] MEDS ORDERED: MAGNESIUM HYDROXIDE 30 ML UDCUP PO PRN (09:47)
[2018-07-28] MEDS ORDERED: LACTULOSE 20 GM/30 ML UDCUP PO PRN (09:47)
[2018-07-28] MEDS ORDERED: METOCLOPRAMIDE 10 MG/2 ML VIAL IVP PRN (09:47)
[2018-07-28] MEDS ORDERED: ONDANSETRON DISINTEGRATING 4 MG TAB PO PRN (09:47)
[2018-07-28] MEDS ORDERED: PROMETHAZINE HCL 25 MG/ML INJ IVP PRN (09:47)
[2018-07-28] MEDS ORDERED: BISACODYL 10 MG SUPP PR PRN (09:47)
[2018-07-28] MEDS ORDERED: POLYETHYLENE GLYCOL 3350 17 GM PKT PO PRN (09:47)
[2018-07-28] MEDS ORDERED: DIPHENOXYLATE/ATROPINE LOMOTIL 1 TAB PO PRN (09:47)
[2018-07-28] MEDS ORDERED: diphenhydrAMINE 25 MG CAP PO PRN (09:47)
[2018-07-28] MEDS ORDERED: TEMAZEPAM 15 MG CAP PO PRN (09:47)
[2018-07-28] MEDS ORDERED: PROMETHAZINE HCL 25 MG SUPPR PR PRN (09:47)
--- NOTE | 2018-07-28 09:47 | POSTOPPROG ---
Post Op Note Date of Operation: 07/28/18 Surgeon: Eva Seth Drier Tender Naphthalene: trinity seth PA-C Anesthesiologist: dr. burton Anesthesia: Spinal Pre-op Diagnosis: left knee OA Post-op Diagnosis: same Indication: left knee pain Procedure: L TKA robot assisted, sensor assisted Findings: severe knee OA Inf/Abcess present in the surg proc area at time of surgery?: No EBL: 50-100
[2018-07-28] MEDS ORDERED: fentaNYL 100 MCG/2 ML INJ ONE (09:48)
[2018-07-28] MEDS: fentaNYL 100 MCG/2 ML INJ IVP PRN ×3 (09:50→10:38)
--- NOTE | 2018-07-28 09:51 | POSTANESTH ---
Post Anesthetic Evaluation Cardiovascular Status: Normal, Stable, Similar to Pre-Op Cond Respiratory Status: Normal, Stable, Similar to Pre-op Cond. Level of Consciousness/Mental Status: Can Participate in Eval, Alert and Oriented Pain Control: Inadeq, Add Tx Required Nausea/Vomiting Control: Adequate, Prn Tx Ordered Complications Possibly Related to Anesthesia: None Noted
[2018-07-28] MEDS ORDERED: LR 1,000 ML IV SCH (10:00)
[2018-07-28] MEDS ORDERED: oxyCODONE IR 5 MG TAB ONE (10:11)
[2018-07-28] MEDS: oxyCODONE IR 5 MG TAB PO PRN ×4 (12:33→23:28)
[2018-07-28] MEDS: ACETAMINOPHEN 325 MG TAB PO SCH ×3 (12:34→22:51)
[2018-07-28] MEDS: CYCLOBENZAPRINE 10 MG TAB PO PRN (15:06)
[2018-07-28] MEDS: GABAPENTIN 300 MG CAP PO SCH ×2 (15:37→21:08)
[2018-07-28] MEDS: ceFAZolin 2 GM/DEXTROSE 100 ML IV SCH ×2 (16:04→22:51)
[2018-07-28] MEDS: FAMOTIDINE 20 MG TAB PO SCH (21:07)
[2018-07-28] MEDS: SENNOSIDES/DOCUSATE SODIUM TAB PO SCH (21:08)
[2018-07-28] MEDS: ASPIRIN 81 MG CHEWABLE TAB PO SCH (21:08)
[2018-07-29] MEDS: oxyCODONE IR 5 MG TAB PO PRN ×3 (02:43→13:02)
--- NOTE | 2018-07-29 03:31 | GOP ---
DATE OF OPERATION: 07/28/2018 SURGEON: Gisselle Lopez MD PHOTO MASK PATTERN GENERATOR: JESSICA Crenshaw. ANESTHESIA: Spinal. PREOPERATIVE DIAGNOSIS: Left knee osteoarthritis. POSTOPERATIVE DIAGNOSIS: Left knee osteoarthritis. PROCEDURE PERFORMED: Left total knee arthroplasty with computer navigation, robotic assist. FINDINGS: ESTIMATED BLOOD LOSS: 30 cc. INDICATIONS: The patient is a 48-year-old female with severe and progressive pain and deformity of t he left knee unresponsive to conservative care. The risks and benefits of surgical intervention were explained in detail. DESCRIPTION OF PROCEDURE: The patient was brought to the operative room and placed on the table in t he supine position. Spinal anesthesia was induced without difficulty. A pneumatic tourniquet was appl ied about the left proximal thigh, and the leg was prepped and draped in a sterile fashion. The leg h older was applied. After exsanguination by elevation the tourniquet was inflated to 250 mmHg. Incision was made anterior medial from the tibial tuberosity to a point 2 cm proximal to the superior pole of the patella. Medial parapatellar arthrotomy was carried out from the superior pole of the pa tella and posteriorly in line with the fibers of the Type II VMO. The medial collateral ligament was elevated and the infrapatellar fat pad was resected. Severe medial and patellofemoral osteoarthritis . The patella was everted and the articular surface was excised. A 32 mm patellar button was placed. Attention was turned first to the distal aspect of the femur. After exposure of the femur, 2 half pi ns were placed for fixation of the femoral array. In a similar fashion, 2 pins were placed anteromed ial on the tibia for fixation of the tibial array. External land marking and registration of the hip center was performed without difficulty. Internal femoral and tibial registration was carried out w ithout difficulty and the femoral and tibial checkpoints were placed and verified for accuracy. Attention was turned to the femur. The foot print for the size 4 femoral component was cut with the saw using the [employer] robotic system and verified for accuracy against the CT based plan. In a similar f ashion, the saw was used to cut the footprint for the size 3 tibial component using the [employer] system an d verified for accuracy against the CT based plan. The tibial articular surface was excised without d ifficulty, followed by the intercondylar box cut. The knee was extended and the remnants of the medial and lateral meniscus were excised. The posterior capsule was injected with ropivacaine, epinephrine and Toradol. A size 3 tibial tray was positioned . Trial reduction was then carried out. There was excellent range of motion, alignment, and stability using the 3 x 9 mm polyethylene. All trials were then removed. The joint was thoroughly irrigated and carefully dried. The press-fit c omponents were implanted. The permanent 3 x 9 mm polyethylene was placed without difficulty. The tourniquet was deflated and all bleeders were coagulated. The wound was thoroughly irrigated and closed using interrupted sutures of 2-0 Vicryl for the joint capsule. The subcu was closed with 3-0 V icryl and the skin with 4-0 Monocryl. Dermabond and Steri-Strips were applied followed by a compress dennis dressing. The patient was then moved from the operating room to the recovery room in good conditi on, having tolerated the procedure well. /[id number]/MODL
[2018-07-29] MEDS: CYCLOBENZAPRINE 10 MG TAB PO PRN ×2 (04:21→13:12)
[2018-07-29] MEDS: ACETAMINOPHEN 325 MG TAB PO SCH ×2 (05:12→13:03)
[2018-07-29] MEDS: SENNOSIDES/DOCUSATE SODIUM TAB PO SCH (08:38)
[2018-07-29] MEDS: ASPIRIN 81 MG CHEWABLE TAB PO SCH (08:38)
[2018-07-29] MEDS: GABAPENTIN 300 MG CAP PO SCH (08:38)
[2018-07-29] MEDS: FAMOTIDINE 20 MG TAB PO SCH (08:38)
[2018-07-29] MEDS ORDERED: VENLAFAXINE XR 150 MG CAP PO SCH (09:00)
--- NOTE | 2018-07-29 10:55 | SOAPPROG ---
SOAP Progress Note Assessment/Plan: Assessment: Patient is doing well POD 1 s/p L TKA Pain management: pain is well controlled on oral pain meds. VTE ppx: recommend aspirin daily for 3 weeks, cont COLTON and SCDs Anemia: level is expected initially postop. Asymptomatic. Continue to monitor D/c planning:patient has done much better than anticipated. Patient is stable, BP stable, pain well controlled and patient is eager for discharge to home. May d/c to home today pending release from PT postop urinary retention: straight cath'd yesterday, resolved today. Plan: 07/29/18 10:54 Subjective: Cathie is doing well today, denies SOB, chest pain and N/V Objective: Vital Signs Temp Pulse Resp BP Pulse Ox 37.0 C 84 16 100/67 97 07/29/18 08:00 07/29/18 08:00 07/29/18 08:00 07/29/18 08:00 07/29/18 08:00 Laboratory Results 07/29/18 05:15 07/28/18 07/29/18 07/30/18 05:59 05:59 05:59 Intake Total 2500 Output Total 3900 850 Balance -1400 -850 LLE; incision dressing is clean and dry, NVI, +pf/df ICD10 Worksheet Patient Problems: Problems Problem Status Onset Primary localized osteoarthritis of left knee Acute Abdominal pain Acute Acute pyelonephritis Acute Primary localized osteoarthritis of right knee Acute
--- NOTE | 2018-07-29 11:33 | GDS ---
ADMISSION DIAGNOSIS: Left knee osteoarthritis. DISCHARGE DIAGNOSIS: Left knee osteoarthritis. PROCEDURE: Left total knee arthroplasty, robotic-assisted, sensor-assisted. VTE PROPHYLAXIS: Recommend aspirin 81 mg twice daily for 4 weeks. BRIEF DESCRIPTION OF HOSPITAL STAY: Patient was admitted for an elective joint arthroplasty. The pa saira tolerated the procedure well and has passed physical therapy. The patient was given appropriat e antibiotic prophylaxis and venous thromboembolism prophylaxis. The patient's pain was well control led on oral pain medication, patient was holding down food, and had urinated. Decision was made to d ischarge the patient. The patient was given post-operative prescriptions pre-operatively. PLAN: Follow up as scheduled in Dr. Lopez's office in 3 weeks, with Darline Lopez August 17. /[id number]/MODL
[2018-07-29 12:15] VITALS: BP 88/53
== END 2018-07-29 13:40 | disposition home or self-care (01) ==
LOC: F3N 06:09 → EDSTATUS 09:00 → F3N 12:18
PROVIDERS: ADMIT Orthopaedic Surgery; ATTEND Orthopaedic Surgery
DX: M17.12 Unilateral primary osteoarthritis, left knee (principal); Z96.651 Presence of right artificial knee joint; D62 Acute posthemorrhagic anemia; R33.9 Retention of urine, unspecified; Z98.1 Arthrodesis status
CPT/HCPCS: 27447; 73560; 97116; 97161; G0378; J0171; J0690; J1100; J1885; J2250; J2270; J2704; J2795; J3010

== ENCOUNTER → 2018-09-14 | Outpatient (CLI) | payer BC ==
[~2018-09-14] MED LIST changes: +IOPAMIDOL (ISOVUE-300) 100 ML BTL ONE; -ROPIVACAINE 0.2% 80 MG, EPINEPHrine 0.2 MG, KETOROLAC TROMETHAMINE 30 MG in SYRINGE 0 ML IU ONE; -TRANEXAMIC ACID 3,000 MG in NS (SYRINGE) 50 ML IRR ONE
== END ==
LOC: CIMAGING 13:34
PROVIDERS: ATTEND Otolaryngology
DX: K11.5 Sialolithiasis (principal); R22.1 Localized swelling, mass and lump, neck
CPT/HCPCS: 70491-PO; Q9967

== ENCOUNTER → 2018-09-26 | Outpatient (CLI) | payer BC | LOC: CIMAGING 14:38 | PROVIDERS: ATTEND Physician Assistant Surgical | DX: M50.321 Other cervical disc degeneration at C4-C5 level (principal); Z98.1 Arthrodesis status | CPT/HCPCS: 72040-PO ==